=== PATIENT | male | born 1980 | race African-American/Black ===

== ENCOUNTER 2020-06-14 19:35 | Emergency (ER) | payer SELFPAY ==
[~2020-06-14] VITALS: Ht 177.8 cm; Wt 98.0 kg
[2020-06-14 20:11] VITALS: BP 129/77
[2020-06-14] MEDS ORDERED: TETANUS, DIPHTHERIA, PERTUSSIS VAC/PF 0.5ML (>7YR OLD) IM ONE (20:30)
[2020-06-14] MEDS ORDERED: CIPR-263 MT (21:37)
== END 2020-06-14 22:15 | disposition home or self-care (01) ==
LOC: ER 19:35
DX: S91.332A Puncture wound without foreign body, left foot, initial encounter (principal); Z91.013 Allergy to seafood; W51.XXXA Accidental striking against or bumped into by another person, initial encounter; Y93.89 Activity, other specified; Y92.89 Other specified places as the place of occurrence of the external cause; Y99.8 Other external cause status
CPT/HCPCS: 90471; 90715; 99283